=== PATIENT | male | born 2005 | race Caucasian/White ===

== ENCOUNTER 2025-02-18 13:46 | Emergency (ER) | payer MEDICAID ==
[~2025-02-18] VITALS: Ht 154.9 cm; Wt 64.0 kg
[2025-02-18 13:55] VITALS: O2SAT 99
[2025-02-18] MEDS ORDERED: IBUP-2029 MT (16:13)
[2025-02-18] MEDS: IBUPROFEN 600MG TABLET PO ONE (16:22)
[2025-02-18 16:23] VITALS: BP 110/62; PULSE 94; RESP 16; TEMP 36.7; O2SAT 99
== END 2025-02-18 16:27 | disposition home or self-care (01) ==
LOC: ER 13:46
DX: M25.462 Effusion, left knee (principal); Z79.899 Other long term (current) drug therapy; W19.XXXA Unspecified fall, initial encounter; Y93.89 Activity, other specified; Y92.89 Other specified places as the place of occurrence of the external cause; Y99.8 Other external cause status
CPT/HCPCS: 99283; 73562; A6449